=== PATIENT | male | born 1970 | race Caucasian/White ===

== ENCOUNTER 2018-04-16 14:57 | Emergency (ER) | payer OTHER ==
[~2018-04-16] VITALS: Ht 185.4 cm; Wt 106.6 kg
[~2018-04-16 14:57] MED LIST: FLECAINIDE ACET50 M1 PO; LEXAPRO 10 MG T10 MG PO; MEDROLDOSEPACK PO; OXYCODONE HCL5 M1 PO; XANAX 0.25 MG0.25 MG PO; XARELTO20 MG PO; ZYPREXA 10 MG T10 MG PO
[2018-04-16 15:40] VITALS: BP 145/91
[2018-04-16] MEDS ORDERED: TOPROL XL25 MG PO (15:45)
[2018-04-16] MEDS ORDERED: IBUPROFEN 800800 MG PO (16:02)
[2018-04-16] MEDS ORDERED: TRAMADOL 50 MG50 MG PO (16:02)
[2018-04-16] MEDS ORDERED: AMOXICILLIN 50500 MG PO (16:02)
[2018-04-16] MEDS ORDERED: LIDOCAINE VISC100 ML PO (16:06)
== END 2018-04-16 16:10 | disposition home or self-care (01) ==
LOC: M.ERS 14:57
DX: K08.89 Other specified disorders of teeth and supporting structures (principal); I10 Essential (primary) hypertension; F41.9 Anxiety disorder, unspecified; I48.91 Unspecified atrial fibrillation; F17.210 Nicotine dependence, cigarettes, uncomplicated; Z88.5 Allergy status to narcotic agent